=== PATIENT | female | born 1970 | race Asian ===

== ENCOUNTER 2022-12-15 09:54 | Day surgery (SDC) | payer OTHER ==
[2022-12-12 13:06] VITALS: BMI 25.3
[2022-12-15] MEDS ORDERED: LIDOCAINE HCL/PF 2% SDV 5ML VIAL ONE (11:13)
[2022-12-15] MEDS ORDERED: MIDAZOLAM HCL 2 MG/2 ML SINGLE DOSE VIAL ONE (11:14)
[2022-12-15] MEDS ORDERED: PROPOFOL 20 ML ONE (11:14)
[2022-12-15] MEDS ORDERED: BUPIVACAINE HCL/PF 2.5 MG/ML - 30 ML VIAL IJ ONE (11:24)
[2022-12-15] MEDS ORDERED: EPINEPHrine 1:1,000 1,000 MCG/ML ML ONE (11:25)
[2022-12-15] MEDS ORDERED: ceFAZolin SODIUM 1 GM VIAL ONE (11:46)
[2022-12-15] MEDS ORDERED: DEXAMETHASONE SOD PHOSPHATE 4 MG/1 ML VIAL ONE (11:46)
[2022-12-15] MEDS ORDERED: KETOROLAC TROMETHAMINE 30 MG/1 ML VIAL ONE (12:11)
[2022-12-15] MEDS ORDERED: ONDANSETRON 4 MG/2 ML VIAL ONE (12:11)
[2022-12-15] MEDS ORDERED: PROMETHAZINE HCL 25 MG/1 ML VIAL IVPB PRN (12:39)
[2022-12-15] MEDS ORDERED: ONDANSETRON 4 MG/2 ML VIAL IVPUSH PRN (12:39)
[2022-12-15] MEDS ORDERED: oxyCODONE HCL 5 MG TABLET PO PRN ×2 (12:39)
[2022-12-15] MEDS ORDERED: ACETAMINOPHEN 1000 MG/100 ML BAG IVPB ONE (12:39)
[2022-12-15] MEDS ORDERED: LACTATED RINGERS SOLUTION 1,000 ML IV SCH (12:45)
[2022-12-15] MEDS ORDERED: FENTANYL CITRATE/PF 50 MCG/ML VIAL ONE (13:10)
[2022-12-15 13:46] VITALS: RESP 18; TEMP 97.4
[2022-12-15] MEDS ORDERED: oxyCODONE HCL 5 MG TABLET ONE (13:46)
[2022-12-15 14:35] VITALS: BP 130/64; PULSE 78
== END 2022-12-15 14:35 | disposition home or self-care (01) ==
LOC: FASU 09:54
PROVIDERS: ATTEND Orthopaedic Surgery
PROC: 0SBD4ZZ Excision of Left Knee Joint, Percutaneous Endoscopic Approach (ICD-10-PCS; 2022-12-15)
PROC: 0SBD4ZZ Excision of Left Knee Joint, Percutaneous Endoscopic Approach (ICD-10-PCS; 2022-12-15)
PROC: 0SBD4ZZ Excision of Left Knee Joint, Percutaneous Endoscopic Approach (ICD-10-PCS; principal; 2022-12-15 12:06)
DX: S83.242A Other tear of medial meniscus, current injury, left knee, initial encounter (principal); S83.282A Other tear of lateral meniscus, current injury, left knee, initial encounter; M65.862 Other synovitis and tenosynovitis, left lower leg; S83.8X2A Sprain of other specified parts of left knee, initial encounter; X58.XXXA Exposure to other specified factors, initial encounter; Y92.9 Unspecified place or not applicable; Y93.9 Activity, unspecified
CPT/HCPCS: 94760

== ENCOUNTER 2023-02-23 05:58 | Day surgery (SDC) | payer OTHER ==
[2023-02-17 15:18] VITALS: BMI 25.3
[2023-02-23] MEDS ORDERED: LIDOCAINE HCL 1%, 10 MG/ML (20ML VIAL) ONE ×2 (07:18→07:29)
[2023-02-23] MEDS ORDERED: PROPOFOL 40 ML ONE (07:22)
[2023-02-23] MEDS ORDERED: MIDAZOLAM HCL 2 MG/2 ML SINGLE DOSE VIAL ONE (07:22)
[2023-02-23] MEDS ORDERED: methylPREDNISolone ACET (DEPO) 40 MG/1 ML VIAL ONE ×2 (07:28→07:32)
[2023-02-23] MEDS ORDERED: PROPOFOL 20 ML ONE (07:58)
[2023-02-23] MEDS ORDERED: LIDOCAINE HCL 1%, 10 MG/ML (20ML VIAL) NR ONE (07:58)
[2023-02-23] MEDS ORDERED: ceFAZolin SODIUM 1 GM VIAL ONE (08:31)
[2023-02-23 08:45] VITALS: RESP 20
[2023-02-23 08:54] VITALS: BP 124/70; PULSE 84; TEMP 97.8
== END 2023-02-23 09:06 | disposition home or self-care (01) ==
LOC: FASU 05:58
PROVIDERS: ATTEND Orthopaedic Surgery
PROC: 0LN80ZZ Release Left Hand Tendon, Open Approach (ICD-10-PCS; principal; 2023-02-23 07:58)
DX: M65.312 Trigger thumb, left thumb (principal)